=== PATIENT | male | born 1970 | race Caucasian/White ===

== ENCOUNTER 2017-04-30 12:00 | Emergency (ER) | payer OTHER ==
[~2017-04-30 12:00] MED LIST: ALB18R IH; ALPR-429 PO; ATEN-1 PO; AZIT-1 PO; BENZ200C15 PO; BUS5 PO; CIP500 PO; CYCL10TA29 PO; DOC100 PO; DULO60CA56 PO; ESCI10TA8 PO; ESOM40CA42 PO; HYDR-2966 PO; HYDR12.561 PO; IPRA3AMP21 IH; LISI-355 PO; LISI-362 PO; LISI20TA29 PO; LOR5 PO; MOMR ENA; NEBI10TA4 PO; NICO-218 TD; PER PO; PHENA200 PO; TAM4 PO; TOLT2TAB5 PO; TRIA15CR40 TOP; VARE1TAB3 PO; [UNRECOGNIZED DRUG - REMARK]
--- NOTE | 2017-04-30 12:16 | ER Report ---
History and Physical Time Seen By MD: 12:15 Hx. of Stated Complaint: Syncope on Sunday diarrhea this weekend HPI/ROS 46-year-old male ambulatory to the emergency room states he was nauseated on Sunday was sitting on the toilet woke up with a hematoma on his forehead had passed out and fallen into the shower and had head and neck pain talk to his at the time told him that he had the flu and go to bed and went to bed and woke up with several episodes of diarrhea has diarrhea over the weekend and remained nauseated periumbilical abdominal pain Remainder of the 14 system rev: Yes Allergies: Uncoded Allergies: RAGWEED MOLD (Allergy, Mild, STUFFY NOSE, 12/23/06) Home Meds Active Scripts Ondansetron (ZOFRAN ODT) 4 Mg Tab.rapdis, 4 MG PO Q6H Y for NAUSEA/VOMITING, # 20 TAB.RUDY Prov:SEAN CHARLTON APRN-C 04/30/17 Escitalopram Oxalate (ESCITALOPRAM OXALATE) 10 Mg Tablet, 0.5 TAB PO QDAY, #15 TAB 2 Refills Prov:SELENA LANDIS APRN-C 04/09/17 Lisinopril/Hydrochlorothiazide (LISINOPRIL-HCTZ 20-25 MG TAB) 1 Each Tablet, 1 TAB PO DAILY, #90 TAB 3 Refills Prov:SELENA LANDIS APRN-C 12/01/16 Albuterol Sulfate (VENTOLIN HFA) 18 Gm Inh, 2 PUFF IH QID Y for SHORTNESS OF BREATH, #1 INHALER 0 Refills Prov:SELENA LANDIS APRN-C 10/26/16 Buspirone Hcl (BUSPIRONE HCL) 5 Mg Tab, 1 TAB PO TID, #90 TAB 5 Refills Prov:SELENA LANDIS APRN-C 10/06/16 Triamcinolone Acetonide 0.1% Cr 15 Gm Tube (TRIAMCINOLONE ACETONIDE 0.1% CREAM) 15 Gm Cream..g., 1 WILTON TOP TID Y for eczema, #60 GM 1 Refill Do not apply to genitals, face or folds Prov:SELENA LANDIS APRN-C 01/22/15 Discontinued Scripts Benzonatate (BENZONATATE) 200 Mg Capsule, 1 CAP PO TID Y for cough, #15 CAP 0 Refills Prov:SELENA LANDIS APRN ANIMAL PATHOLOGIST-C 10/26/16 Mometasone Furoate (NASONEX) 17 Gm [place], 2 SPRAY BLUE DAILY, #1 BOTTLE 0 Refills Prov:SELENA LADNIS APRN ANIMAL PATHOLOGIST-C 10/26/16 Nicotine (NICODERM CQ) 1 Each Patch.td24, 1 PATCH TD DAILY, #42 PATCH 0 Refills May remove at bedtime if desired Prov:SELENA LANDIS APRN ANIMAL PATHOLOGIST-C 09/19/16 Esomeprazole Magnesium (NEXIUM) 40 Mg Capsule., 1 CAP PO QDAY, #30 CAP 1 Refill Prov:EVANGELIST XIONG MD 06/01/16 Past Medical/Surgical History Hypertension, appendectomy, umbilical hernia Hx Smoking: No Smoking Status: Never Smoker Exposure to Second Hand Smoke?: No Hx Substance Use Disorder: No Hx Alcohol Use: No Family History of: HTN Constitutional Vital Sign - Last 24 Hours 04/30/17 04/30/17 04/30/17 04/30/17 12:08 12:08 12:15 12:15 Pulse 76 76 B/P (MAP) 143/96 (112) 143/96 (112) Pulse Ox 94 94 04/30/17 04/30/17 04/30/17 04/30/17 12:30 12:30 12:34 12:45 Temp 97.7 Pulse 65 65 76 ??? Resp 16 B/P (MAP) 123/86 (98) 123/86 (98) 143/96 Pulse Ox 95 95 96 04/30/17 04/30/17 04/30/17 04/30/17 12:59 12:59 13:00 13:00 Pulse 66 66 B/P (MAP) 129/92 (104) 129/92 (104) 126/89 (101) 126/89 (101) Pulse Ox 96 96 04/30/17 04/30/17 04/30/17 04/30/17 13:02 13:02 13:06 13:15 Pulse 69 ??? 68 78 B/P (MAP) 118/82 (94) 118/82 (94) 129/92 (104) 126/89 (101) 118/82 (94) Pulse Ox 84 04/30/17 04/30/17 04/30/17 04/30/17 13:24 13:30 13:30 13:36 Temp 97.7 Pulse 67 67 B/P (MAP) 125/80 (95) 125/80 (95) Pulse Ox 91 91 O2 Flow Rate 1.0 04/30/17 04/30/17 04/30/17 04/30/17 13:45 13:45 13:50 14:00 Pulse 78 78 66 B/P (MAP) 126/89 (101) Pulse Ox 94 94 96 04/30/17 04/30/17 04/30/17 04/30/17 14:05 14:20 14:30 14:35 Pulse 62 61 52 B/P (MAP) 139/90 (106) Pulse Ox 97 97 96 04/30/17 04/30/17 04/30/17 14:50 14:59 15:05 Pulse 64 ??? B/P (MAP) 116/75 (89) Pulse Ox 96 Intake and Output 04/30/17 04/30/17 05/01/17 15:00 23:00 07:00 Intake Total 650 ml Balance 650 ml Physical Exam He 6-year-old male alert and oriented no acute distress HEENT head has a bruise on his forehead tympanic membranes no hemotympanum throat is non-reddened neck is supple mild tenderness midline at about C6 heart rate is regular no murmurs rubs and gallops lungs decreased bilateral bases abdomen is obese bowel sounds 4 quadrants no abdominal pain currently is all extremities no peripheral edema Medical Decision Making Data Points Result Diagram: 04/30/17 1232 04/30/17 1232 Laboratory Hematology Test 04/30/17 12:32 04/30/17 14:18 Red Blood Count 5.41 M/uL (4.00-5.60) Mean Corpuscular Volume 92.1 fL (80.0-96.0) Mean Corpuscular Hemoglobin 31.5 pg (26.0-33.0) Mean Corpuscular Hemoglobin Concent 34.2 g/dL (32.0-36.0) Red Cell Distribution Width 13.0 % (11.5-14.5) Mean Platelet Volume 7.6 fL (7.2-11.1) Neutrophils (%) (Auto) 60.5 % (39.4-72.5) Lymphocytes (%) (Auto) 22.6 % (17.6-49.6) Monocytes (%) (Auto) 14.5 % (4.1-12.4) Eosinophils (%) (Auto) 1.9 % (0.4-6.7) Basophils (%) (Auto) 0.5 % (0.3-1.4) Nucleated RBC Relative Count (auto) 0.2 /100WBC Neutrophils # (Auto) 4.8 K/uL (2.0-7.4) Lymphocytes # (Auto) 1.8 K/uL (1.3-3.6) Monocytes # (Auto) 1.1 K/uL (0.3-1.0) Eosinophils # (Auto) 0.2 K/uL (0.0-0.5) Basophils # (Auto) 0.0 K/uL (0.0-0.1) Nucleated RBC Absolute Count (auto) 0.02 K/uL D-Dimer Quantitative (PE/DVT) 0.38 ug/ml (0-0.50) Sodium Level 138 mmol/L (137-145) Potassium Level 3.7 mmol/L (3.5-5.0) Chloride Level 100 mmol/L (98-107) Carbon Dioxide Level 24 mmol/L (22-30) Blood Urea Nitrogen 15 mg/dl (9-21) Creatinine 0.90 mg/dl (0.66-1.25) Glomerular Filtration Rate Calc > 60.0 Random Glucose 87 mg/dl (75-110) Calcium Level 9.1 mg/dl (8.4-10.2) Magnesium Level 2.0 mg/dl (1.7-2.2) Total Bilirubin 0.4 mg/dl (0.2-1.3) Aspartate Amino Transf (AST/SGOT) 24 U/L (0-35) Alanine Aminotransferase (ALT/SGPT) 41 U/L (0-56) Alkaline Phosphatase 56 U/L (0-126) Total Protein 7.2 gm/dl (6.3-8.2) Albumin 4.0 g/dl (3.5-5.0) Amylase Level 61 U/L (0-110) Lipase 148 U/L (23-300) Troponin I < 0.012 ng/ml Chemistry Test 04/30/17 12:32 04/30/17 14:18 White Blood Count 7.9 k/uL (4.5-11.0) Red Blood Count 5.41 M/uL (4.00-5.60) Hemoglobin 17.0 g/dL (14.0-18.0) Hematocrit 49.8 % (42.0-52.0) Mean Corpuscular Volume 92.1 fL (80.0-96.0) Mean Corpuscular Hemoglobin 31.5 pg (26.0-33.0) Mean Corpuscular Hemoglobin Concent 34.2 g/dL (32.0-36.0) Red Cell Distribution Width 13.0 % (11.5-14.5) Platelet Count 306 K/uL (150-450) Mean Platelet Volume 7.6 fL (7.2-11.1) Neutrophils (%) (Auto) 60.5 % (39.4-72.5) Lymphocytes (%) (Auto) 22.6 % (17.6-49.6) Monocytes (%) (Auto) 14.5 % (4.1-12.4) Eosinophils (%) (Auto) 1.9 % (0.4-6.7) Basophils (%) (Auto) 0.5 % (0.3-1.4) Nucleated RBC Relative Count (auto) 0.2 /100WBC Neutrophils # (Auto) 4.8 K/uL (2.0-7.4) Lymphocytes # (Auto) 1.8 K/uL (1.3-3.6) Monocytes # (Auto) 1.1 K/uL (0.3-1.0) Eosinophils # (Auto) 0.2 K/uL (0.0-0.5) Basophils # (Auto) 0.0 K/uL (0.0-0.1) Nucleated RBC Absolute Count (auto) 0.02 K/uL D-Dimer Quantitative (PE/DVT) 0.38 ug/ml (0-0.50) Glomerular Filtration Rate Calc > 60.0 Calcium Level 9.1 mg/dl (8.4-10.2) Magnesium Level 2.0 mg/dl (1.7-2.2) Total Bilirubin 0.4 mg/dl (0.2-1.3) Aspartate Amino Transf (AST/SGOT) 24 U/L (0-35) Alanine Aminotransferase (ALT/SGPT) 41 U/L (0-56) Alkaline Phosphatase 56 U/L (0-126) Total Protein 7.2 gm/dl (6.3-8.2) Albumin 4.0 g/dl (3.5-5.0) Amylase Level 61 U/L (0-110) Lipase 148 U/L (23-300) Troponin I < 0.012 ng/ml Coagulation Test 04/30/17 12:32 D-Dimer Quantitative (PE/DVT) 0.38 ug/ml EKG/Imaging EKG Interpretation EKG at 1240 to normal sinus rhythm ventricular rate 65 QTCs 447 2nd EKG at 1357 sinus bradycardia ventricular rate 57 QTC 418 Imaging ACILITY: [facility] [place] PATIENT NAME: Jimmy Cutler : 1970 MR: [id number] V: [id number] EXAM DATE: [id number] ORDERING PHYSICIAN: SEAN CHARLTON TECHNOLOGIST: Location: [facility] [place] Patient: Jimmy Cutler : 1970 Visit/Account:[id number] Date of Sevice: 04/30/2017 Exam type: CHEST SINGLE AP History: syncope Comparison: October 26, 2016. Findings: The lungs are free of acute effusions, infiltrates or edema. No evidence of a pneumothorax or pneumomediastinum. Cardiac silhouette is normal in size. The trachea is midline. IMPRESSION: 1. No acute cardiac pulmonary process is seen Report Dictated By: Shelley Garcia MD at 04/30/2017 12:56 PM Report E-Signed By: Shelley Garcia MD at 04/30/2017 12:58 PM WSN:[id number]: [facility] [place] PATIENT NAME: Jimmy Cutler : 1970 MR: [id number] V: [id number] EXAM DATE: [id number] ORDERING PHYSICIAN: SEAN CHARLTON TECHNOLOGIST: Location: [facility] [place] Patient: Jimmy Cutler : 1970 Visit/Account:[id number] Date of Sevice: 04/30/2017 EXAMINATION: CT HEAD AND CERVICAL SPINE WITHOUT CONTRAST COMPARISON: None available HISTORY: syncope PROCEDURE: Noncontrast CT from the vertex through the skull base and multiplanar noncontrast cervical spine. One of the following dose optimization techniques was utilized in the performance of this exam: Automated exposure control; adjustment of the mA and/or kV according to the patient's size; or use of an iterative reconstruction technique. Specific details can be referenced in the facility's radiology CT exam operational policy. FINDINGS: CT head without contrast: Brain volume: Age-appropriate. Hemorrhage/extra-axial fluid: None. Mass effect/midline shift/edema: None. Ischemia: Sparrow-white differentiation is preserved. Ventricles and basal cisterns: Within normal limits. Posterior fossa: Negative. Vessels: Negative. Calvarium, skull base, and scalp: Negative. Visualized sinuses and orbits: Left maxillary sinus mucous retention cyst. Paranasal sinuses and mastoid air cells are otherwise clear. Orbital contents are unremarkable. CT cervical spine without contrast: Alignment: Within normal limits. Cranio-cervical junction: Within normal limits. Vertebral bodies: Within normal limits. Posterior elements: Within normal limits. Disc spaces: Within normal limits. Hardware: None. Soft tissues: Absent left hemithyroid. No acute changes. Visualized upper chest: Negative. IMPRESSION: 1. No intracranial hemorrhage or mass effect. 2. No CT findings of acute ischemia. 3. No cervical spine fracture or malalignment. Report Dictated By: Bogdan Amador MD at 04/30/2017 1:17 PM ED Course/Re-evaluation Clinical Indication for ER IV: Hydration ED Course Given a liter normal saline in the emergency room feels better after treatment orthostatic vital signs were negative today's workup was negative negative CT head negative CT C-spine negative chest x-ray left upper present within normal limits as well have him follow-up with his primary care provider for the rest of syncope workup he does need to have a stress test done and carotid ultrasound Re-evaluation Feels better after treatment his boss to tell him to go home and rest today will call his provider tomorrow for follow-up states is a family wedding on Sunday in will workaround that return for any problems or concerns Decision to Disposition Date: Apr 30, 2017 Decision to Disposition Time: 15:00 Depart Departure Latest Vital Signs Vital Signs Date Time Temp Pulse Resp B/P (MAP) Pulse Ox O2 Delivery O2 Flow Rate FiO2 04/30/17 15:05 ??? 04/30/17 14:59 116/75 (89) 04/30/17 14:50 96 04/30/17 13:36 1.0 04/30/17 13:24 97.7 04/30/17 12:34 16 Impression: Primary Impression: Syncope Additional Impression: Head injury Condition: Improved Disposition: HOME OR SELF-CARE Referrals: SELENA LANDIS APRNP-C (PCP) 1 Day New Scripts Ondansetron (ZOFRAN ODT) 4 Mg Tab.rapdis 4 MG PO Q6H Y for NAUSEA/VOMITING, #20 TAB.RUDY Prov: SEAN CHARLTON 04/30/17 Patient Instructions: Head Injury (ED), Syncope (DC) Additional Instructions: See her primary care physician in the next day or 2 follow-up for your syncopal episode return for any problems or concerns Problem Qualifiers SEAN CHARLTON Apr 30, 2017 12:16
[2017-04-30] MEDS ORDERED: NS(*) 0.9% 1000 ML BAG 1,000 ML IV ONE (12:24)
[2017-04-30] MEDS ORDERED: ONDANSETRON 4 MG/2 ML VIAL IVP ONE (12:25)
[2017-04-30] MEDS ORDERED: PANTOPRAZOLE SOD 40 MG IV VIAL IVP ONE (12:25)
[2017-04-30 12:39] LABS: PLATELET COUNT, AUTOMATED 306 K/uL (150-450)
--- NOTE | 2017-04-30 13:01 | EKG ---
[place] [facility] [place]IENT NAME: DAYANA COLEMAN : [id number] MR: [id number] V: [id number] EXAM DATE: ORDERING PHYSICIAN: SEAN CHARLTON TECHNOLOGIST: VANESSA Wilson Reason : SYNCOPE Blood Pressure : / mmHG Vent. Rate : 065 BPM Atrial Rate : 065 BPM P-R Int : 148 ms QRS Dur : 092 ms QT Int : 430 ms P-R-T Axes : 025 014 025 degrees QTc Int : 447 ms Normal sinus rhythm Normal ECG When compared with ECG of 11-JAN-2016 15:31, No significant change was found Confirmed by TEMITOPE HAYES ([id number]) on 04/30/2017 3:59:24 PM Referred By: LATESHA Confirmed By:TEMITOPE HAYES
--- NOTE | 2017-04-30 13:04 | RADIOLOGY IMAGING REPORT ---
FACILITY: [facility] PATIENT NAME: Jimmy Cutler : 1970 MR: [id number] V: [id number] EXAM DATE: ORDERING PHYSICIAN: SEAN CHARLTON TECHNOLOGIST: Location: [facility] [place] Patient: Jimmy Cutler : 1970 Visit/Account:[id number] Date of Sevice: 04/30/2017 Exam type: CHEST SINGLE AP History: syncope Comparison: October 26, 2016. Findings: The lungs are free of acute effusions, infiltrates or edema. No evidence of a pneumothorax or pneumo mediastinum. Cardiac silhouette is normal in size. The trachea is midline. IMPRESSION: 1. No acute cardiac pulmonary process is seen Report Dictated By: Shelley Garcia MD at 04/30/2017 12:56 PM Report E-Signed By: Shelley Garcia MD at 04/30/2017 12:58 PM WSN:[email or web address]
--- NOTE | 2017-04-30 13:29 | RADIOLOGY IMAGING REPORT ---
FACILITY: [facility] PATIENT NAME: Jimmy Cutler : 1970 MR: [id number] V: [id number] EXAM DATE: ORDERING PHYSICIAN: SEAN CHARLTON TECHNOLOGIST: Location: [facility] [place] Patient: Jimmy Cutler : 1970 Visit/Account:[id number] Date of Sevice: 04/30/2017 EXAMINATION: CT HEAD AND CERVICAL SPINE WITHOUT CONTRAST COMPARISON: None available HISTORY: syncope PROCEDURE: Noncontrast CT from the vertex through the skull base and multiplanar noncontrast cervical spine. One of the following dose optimization techniques was utilized in the performance of this exa m: Automated exposure control; adjustment of the mA and/or kV according to the patient's size; or use of an iterative reconstruction technique. Specific details can be referenced in the [facility]. FINDINGS: CT head without contrast: Brain volume: Age-appropriate. Hemorrhage/extra-axial fluid: None. Mass effect/midline shift/edema: None. Ischemia: Sparrow-white differentiation is preserved. Ventricles and basal cisterns: Within normal limits. Posterior fossa: Negative. Vessels: Negative. Calvarium, skull base, and scalp: Negative. Visualized sinuses and orbits: Left maxillary sinus mucous retention cyst. Paranasal sinuses and mast oid air cells are otherwise clear. Orbital contents are unremarkable. CT cervical spine without contrast: Alignment: Within normal limits. Cranio-cervical junction: Within normal limits. Vertebral bodies: Within normal limits. Posterior elements: Within normal limits. Disc spaces: Within normal limits. Hardware: None. Soft tissues: Absent left hemithyroid. No acute changes. Visualized upper chest: Negative. IMPRESSION: 1. No intracranial hemorrhage or mass effect. 2. No CT findings of acute ischemia. 3. No cervical spine fracture or malalignment. Report Dictated By: Bogdan Amador MD at 04/30/2017 1:17 PM Report E-Signed By: Bogdan Amador MD at 04/30/2017 1:25 PM WSN:[id number]
--- NOTE | 2017-04-30 13:30 | RADIOLOGY IMAGING REPORT ---
FACILITY: [facility] [place] PATIENT NAME: Jimmy Cutler : 1970 MR: [id number] V: [id number] EXAM DATE: ORDERING PHYSICIAN: SEAN CHARLTON TECHNOLOGIST: Location: [facility] [place] Patient: Jimmy Cutler : 1970 Visit/Account:[id number] Date of Sevice: 04/30/2017 EXAMINATION: CT HEAD AND CERVICAL SPINE WITHOUT CONTRAST COMPARISON: None available HISTORY: syncope PROCEDURE: Noncontrast CT from the vertex through the skull base and multiplanar noncontrast cervical spine. One of the following dose optimization techniques was utilized in the performance of this exa m: Automated exposure control; adjustment of the mA and/or kV according to the patient's size; or use of an iterative reconstruction technique. Specific details can be referenced in the [facility]. FINDINGS: CT head without contrast: Brain volume: Age-appropriate. Hemorrhage/extra-axial fluid: None. Mass effect/midline shift/edema: None. Ischemia: Sparrow-white differentiation is preserved. Ventricles and basal cisterns: Within normal limits. Posterior fossa: Negative. Vessels: Negative. Calvarium, skull base, and scalp: Negative. Visualized sinuses and orbits: Left maxillary sinus mucous retention cyst. Paranasal sinuses and mast oid air cells are otherwise clear. Orbital contents are unremarkable. CT cervical spine without contrast: Alignment: Within normal limits. Cranio-cervical junction: Within normal limits. Vertebral bodies: Within normal limits. Posterior elements: Within normal limits. Disc spaces: Within normal limits. Hardware: None. Soft tissues: Absent left hemithyroid. No acute changes. Visualized upper chest: Negative. IMPRESSION: 1. No intracranial hemorrhage or mass effect. 2. No CT findings of acute ischemia. 3. No cervical spine fracture or malalignment. Report Dictated By: Bogdan Amador MD at 04/30/2017 1:17 PM Report E-Signed By: Bogdan Amador MD at 04/30/2017 1:25 PM WSN:[id number]
--- NOTE | 2017-04-30 14:04 | EKG ---
FACILITY: [facility] PATIENT NAME: DAYANA COLEMAN : [id number] MR: [id number] V: [id number] EXAM DATE: ORDERING PHYSICIAN: SEAN CHARLTON TECHNOLOGIST: MEGHAN Wilson Reason : LIGHT HEADED Blood Pressure : / mmHG Vent. Rate : 057 BPM Atrial Rate : 057 BPM P-R Int : 152 ms QRS Dur : 092 ms QT Int : 430 ms P-R-T Axes : 017 016 014 degrees QTc Int : 418 ms Sinus bradycardia Otherwise normal ECG When compared with ECG of 30-APR-2017 12:42, No significant change was found Confirmed by TEMITOPE HAYES ([id number]) on 04/30/2017 3:59:43 PM Referred By: LATESHA Confirmed By:TEMITOPE HAYES
[2017-04-30] MEDS ORDERED: ONDA4TAB PO (14:49)
[2017-04-30 14:59] VITALS: BP 116/75
== END 2017-04-30 15:10 | disposition home or self-care (01) ==
LOC: ER 12:09
DX: R55 Syncope and collapse (principal); R00.1 Bradycardia, unspecified
CPT/HCPCS: 36415; 70450; 71045; 72125; 82150; 83690; 83735; 84484; 85025; 85379; 93005; 96361; 96374; 96375; 99284; C9113; J2405; J7030; 82040; 82247; 82310; 82374; 82435; 82565; 82947; 84075; 84132; 84155; 84295; 84450; 84460; 84520

== ENCOUNTER → 2017-05-04 | Outpatient (CLI) | payer OTHER ==
[~2017-05-04] MED LIST changes: +ONDA4TAB PO
--- NOTE | 2017-05-04 15:45 | RADIOLOGY IMAGING REPORT ---
FACILITY: [facility] PATIENT NAME: Jimmy Cutler : 1970 MR: [id number] V: [id number] EXAM DATE: ORDERING PHYSICIAN: SELENA LANDIS TECHNOLOGIST: Location: [facility] [place] Patient: Jimmy Cutler : 1970 Visit/Account:[id number] Date of Sevice: 05/04/2017 CAROTID HISTORY: syncope COMPARISON: None. FINDINGS: Grayscale, duplex and color Doppler interrogation of the extracranial carotid and vertebral arteries was performed bilateral. On the right, peak systolic velocities within the common and internal carotid arteries are 94 and 96 cm/sec respectively. No significant plaque identified. Antegrade flow within the common, internal a nd external carotid arteries as well as vertebral artery. ICA/CCA ratio 1.1. On the left, peak systolic velocities within the common and internal carotid arteries are 121 and 75 cm/sec respectively. No significant plaque identified. Antegrade flow within the common, internal a nd external carotid arteries as well as vertebral artery. ICA/CCA ratio 1. IMPRESSION: No hemodynamically significant lesions identified Velocity criteria are extrapolated from diameter data as defined by the Society of Radiologists in Ul trasound Consensus Conference Radiology 2003; 229;340-346 Report Dictated By: Shelley Garcia MD at 05/04/2017 3:39 PM Report E-Signed By: Shelley Garcia MD at 05/04/2017 3:40 PM WSN:[email or web address]
== END ==
LOC: US 03:50
PROVIDERS: ATTEND Nurse Practitioner Family
DX: R55 Syncope and collapse (principal)
CPT/HCPCS: 93880

== ENCOUNTER → 2017-05-08 | Outpatient (CLI) | payer OTHER | LOC: RESP 01:52 | PROVIDERS: ATTEND Nurse Practitioner Family | DX: R55 Syncope and collapse (principal) | CPT/HCPCS: 93017 ==

== ENCOUNTER → 2017-07-12 | Outpatient (REF) ==
[2017-07-12 16:16] LABS: LDL CHOLESTEROL 113 mg/dl
== END ==
DX: Z02.9 Encounter for administrative examinations, unspecified (principal)

== ENCOUNTER → 2017-07-25 | Outpatient (CLI) | payer SELFPAY | LOC: AUD 14:48 | PROVIDERS: ATTEND Nurse Practitioner | DX: Z46.1 Encounter for fitting and adjustment of hearing aid (principal) | CPT/HCPCS: 92591 ==

== ENCOUNTER → 2017-08-27 | Outpatient (CLI) | payer OTHER ==
[~2017-08-27] MED LIST changes: +OXYGENHOME INH
[2017-08-27 15:49] LABS: PLATELET COUNT, AUTOMATED 285 K/uL (150-450)
== END ==
LOC: LAB 15:28
PROVIDERS: ATTEND Nurse Practitioner Family
DX: D72.829 Elevated white blood cell count, unspecified (principal)
CPT/HCPCS: 36415; 85007; 85027

== ENCOUNTER → 2017-08-31 | Outpatient (CLI) | payer OTHER | LOC: RESP 04:18 | PROVIDERS: ATTEND Nurse Practitioner Family | DX: Z02.9 Encounter for administrative examinations, unspecified (principal) | CPT/HCPCS: 94060; 94726; 94729 ==

== ENCOUNTER → 2017-09-06 | Outpatient (CLI) | payer OTHER | LOC: RESP 03:39 | PROVIDERS: ATTEND Nurse Practitioner Family | DX: R06.00 Dyspnea, unspecified (principal) | CPT/HCPCS: 94060 ==

== ENCOUNTER → 2017-09-22 | Outpatient (CLI) | payer OTHER ==
[~2017-09-22] MED LIST changes: +IPRA3AMP10 IH; -IPRA3AMP21 IH
== END ==
LOC: RESP 20:24
PROVIDERS: ATTEND Nurse Practitioner Family
DX: G47.33 Obstructive sleep apnea (adult) (pediatric) (principal); G47.61 Periodic limb movement disorder; G47.36 Sleep related hypoventilation in conditions classified elsewhere

== ENCOUNTER 2018-07-04 10:49 | Emergency (ER) | payer OTHER ==
[~2018-07-04 10:49] MED LIST changes: +GUAI120L3 PO; +PRED20TA6 PO; +Work Note
[2018-07-04 10:54] VITALS: BP 139/93
--- NOTE | 2018-07-04 11:00 | ER Report ---
History and Physical Time Seen By MD: 11:00 Hx. of Stated Complaint: PT BIT BY SPIDER ON SUNDAY. HAVING NAUSEA, HEADACHE. RIGHT EYELID RED AND SWOLLEN HPI/ROS CHIEF COMPLAINT: Swelling and redness of right eyelid HISTORY OF PRESENT ILLNESS: 48-year-old male patient presents to emergency room with complaint of swelling and redness to the right eyelid. Patient states that this is been going on for the last few days. He states that on Sunday he was at his daughter's house. He states his playing outside with his grandkids. He states that after that he started having some irritation to the right eyelid. He believes that he was bitten by some sort of insect, possibly a spider. He states that he didn't think anything of it for couple days after that and then yesterday started not feeling well, headache, malaise, nausea. Patient states the pain has persisted. He denies any fevers, chills, vomiting or diarrhea. Patient states he has been nauseated. Patient has taken ibuprofen which does seem to help with the irritation. He states his applied baking soda and wa rm water, which burned when it was applied, but he states that it helped pulled "poison" out of the eyelid. Allergies: Uncoded Allergies: RAGWEED MOLD (Allergy, Mild, STUFFY NOSE, 12/23/06) Home Meds Active Scripts Sulfamethoxazole/Trimet 800-160 Mg Tab (BACTRIM DS TABLET) 1 Each Tablet, 1 TAB PO Q12H, #14 TAB Prov:DINORAH LEONGP 07/04/18 Cephalexin 500 Mg Tab (KEFLEX 500 MG TAB) 500 Mg Tablet, 500 MG PO Q6H, #28 TAB Prov:DINORAH LEONG 07/04/18 Escitalopram Oxalate (ESCITALOPRAM OXALATE) 10 Mg Tablet, 0.5 TAB PO QDAY, #45 TAB 0 Refills Prov:SELENA LANDIS APRN [employer]NAGER [employer] 04/16/18 [Work Note] No Conflict Check Patient seen in the office today. Please excuse from work today and tomorrow. May return Sunday as tolerated. Prov:JOSELITO NGUYEN DNP, [employer] 02/18/18 Guaifenesin/Codeine Phosphate (Codeine-Guaifen 10-100 mg/5 ml) 120 Ml Liquid, 1- 2 TSP PO Q6H PRN for COUGH, #120 ML 0 Refills Prov:JOSELITO NGUYEN Evi [facility] 02/18/18 Prednisone (PREDNISONE) 20 Mg Tablet, 1 TAB PO BID for 5 Days, #10 TAB 0 Refills Prov:JOSELITO NGUYEN Evi [facility] 02/18/18 [Work Note] No Conflict Check Patient seen in the office today. Please excuse from work 02/12/18-02/14/18. Prov:WENDYJOSELITO DNP [facility] 02/12/18 Buspirone Hcl (BUSPIRONE HCL) 5 Mg Tab, 1 TAB PO TID, #90 TAB 5 Refills Prov:SELENA LANDIS APRN [facility] 10/19/17 Lisinopril/Hydrochlorothiazide (LISINOPRIL-HCTZ 20-25 MG TAB) 1 Each Tablet, 1 TAB PO DAILY, #90 TAB 2 Refills Prov:SELENA LANDIS APRN [facility]- 08/31/17 Oxygen (OXYGEN) Inha, 2 L INH QHS, #2 L Prov:SELENA LANDIS APRN [facility]- 08/29/17 Discontinued Scripts Azithromycin (ZITHROMAX) 250 Mg Tablet, 0 PO QDAY, #6 TAB 0 Refills TAKE 2 TABLETS ON DAY 1 AND 1 TABLET ON DAYS 2-5 Prov:VALDO NGUYENEvi [facility] 02/18/18 Past Medical/Surgical History Patient has a past medical history of hypertension, bronchitis, pneumonia, kidney stone, right leg fracture, right thumb fracture, right elbow fracture, anxiety. Patient has a surgical history of appendectomy, lithotripsy. Patient has a family medical history of cancer. Reviewed Nurses Notes: Yes Hx Smoking: No Smoking Status: Never Smoker Exposure to Second Hand Smoke?: No Hx Substance Use Disorder: No Hx Alcohol Use: No Constitutional Vital Sign - Last 24 Hours 07/04/18 10:54 Temp 97.7 Pulse 79 Resp 16 B/P (MAP) 139/93 Pulse Ox 91 O2 Delivery Room Air Physical Exam General Appearance: The patient is alert, has no immediate need for airway protection and no current signs of toxicity. Respiratory: Chest is non tender, lungs are clear to auscultation. Cardiac: regular rate and rhythm Gastrointestinal: Abdomen is soft and non tender, no masses, bowel sounds normal. Musculoskeletal: Neck: Neck is supple and non tender. Extremities have full range of motion and are non tender. Skin: No rashes or lesions. Patient has 3 scattered spots on the right eyelid, is erythematous, slightly swollen. DIFFERENTIAL DIAGNOSIS: After history and physical exam differential diagnosis was considered for cellulitis, insect bite. Medical Decision Making ED Course/Re-evaluation ED Course Patient was admitted to an exam room, history and physical were obtained. Differential diagnoses were considered. On examination lungs are clear, heart is regular, abdomen is soft and nontender. Patient does have 3 scabbed areas on the right eyelid as well as swelling and erythema. Patient had no tenderness to palpation. We will go ahead and start him on antibiotics. I did call and speak with Lg Trinh, nurse practitioner, who agreed to see the patient on Sunday were able to arrange for an appointment at [facility] on Sunday for reevaluation. Patient is return to emergency room if condition worsens. I discussed this with the patient who verbalized understanding and agreement with plan. Patient did request and was given a note to excuse him from work today and tomorrow. Decision to Disposition Date: July 04, 2018 Decision to Disposition Time: 11:26 Depart Departure Latest Vital Signs Vital Signs Date Time Temp Pulse Resp B/P (MAP) Pulse Ox O2 Delivery O2 Flow Rate FiO2 07/04/18 10:54 97.7 79 16 139/93 91 Room Air Impression: Primary Impression: INSECT BITE OF UNSP EYELID AND PERIOCULAR AREA, INIT Additional Impression: CELLULITIS OF RIGHT ORBIT Condition: Improved Disposition: HOME OR SELF-CARE Referrals: SELENA LANDIS APRNP-C (PCP) New Scripts Sulfamethoxazole/Trimet 800-160 Mg Tab (BACTRIM DS TABLET) 1 Each Tablet 1 TAB PO Q12H, #14 TAB Prov: DINORAH LEONG 07/04/18 Cephalexin 500 Mg Tab (KEFLEX 500 MG TAB) 500 Mg Tablet 500 MG PO Q6H, #28 TAB Prov: DINORAH LEONG 07/04/18 Patient Instructions: Cellulitis (ED) Additional Instructions: Take medications as needed. Follow up with Selena on Sunday, at 1:45pm. Take Tylenol or Ibuprofen as needed for pain. Return to the ER if condition worsens. Limit activity by pain. Problem Qualifiers DINORAH LEONG July 04, 2018 11:00
[2018-07-04] MEDS ORDERED: SULF-198 PO (11:17)
[2018-07-04] MEDS ORDERED: CEPH500T7 PO (11:17)
[2018-07-09] MEDS ORDERED: LIDO700A19 TOP (09:25)
[2018-07-09] MEDS ORDERED: GABA-549 PO (09:25)
[2018-07-10] MEDS ORDERED: ESCI10TA8 PO (10:06)
== END 2018-07-04 11:32 | disposition home or self-care (01) ==
LOC: ER 11:00
DX: S00.261A Insect bite (nonvenomous) of right eyelid and periocular area, initial encounter (principal); H00.033 Abscess of eyelid right eye, unspecified eyelid
CPT/HCPCS: 99282

== ENCOUNTER 2018-07-08 17:02 | Emergency (ER) | payer OTHER ==
[~2018-07-08 17:02] MED LIST changes: +CEPH500T7 PO; +SULF-198 PO
[2018-07-08] MEDS ORDERED: ONDANSETRON 4 MG/2 ML VIAL IVP ONE (17:25)
[2018-07-08] MEDS ORDERED: NS(*) 0.9% 1000 ML BAG 1,000 ML IV ONE (17:25)
--- NOTE | 2018-07-08 17:25 | ER Report ---
History and Physical Time Seen By MD: 17:19 Hx. of Stated Complaint: reports that he was diagnosed with shingles today above right eye and up forehead. pt reports onset of sob and shaking. HPI/ROS CHIEF COMPLAINT: Lightheaded and sweaty HISTORY OF PRESENT ILLNESS: This is a 48-year-old male presents emergency department for lightheadedness and sweaty. 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 He states he felt like he was going to pass out, a coworker assisted him to the emergency department. He did ambulate to the emergency department he is currently being treated for shingles. He also has a follow-up appointment tomorrow with the brilliandeer looper. Denies pain in the eye, no headaches, he states he's having pain around the shingles sites otherwise no other complaints. No recent fevers or chills. He did have a little bit of nausea, no vomiting. Denied chest pain or shortness of breath. He does have an underlying essential tremor. REVIEW OF SYSTEMS: Constitutional: No fever, no chills. Eyes: No discharge. ENT: No sore throat. Cardiovascular: No chest pain, no palpitations. Respiratory: No cough, no shortness of breath. Gastrointestinal: As above. Genitourinary: No hematuria. Musculoskeletal: No back pain. Skin: No rashes. Neurological: As above. Allergies: Uncoded Allergies: RAGWEED MOLD (Allergy, Mild, STUFFY NOSE, 12/23/06) Home Meds Active Scripts Cephalexin 500 Mg Tab (KEFLEX 500 MG TAB) 500 Mg Tablet, 500 MG PO Q6H, #28 TAB Prov:DINORAH LEONG 07/04/18 Escitalopram Oxalate (ESCITALOPRAM OXALATE) 10 Mg Tablet, 0.5 TAB PO QDAY, #45 TAB 0 Refills Prov:SELENA LANDIS APRN-C 04/16/18 Buspirone Hcl (BUSPIRONE HCL) 5 Mg Tab, 1 TAB PO TID, #90 TAB 5 Refills Prov:SELENA LANDIS APRNP-C 10/19/17 Lisinopril/Hydrochlorothiazide (LISINOPRIL-HCTZ 20-25 MG TAB) 1 Each Tablet, 1 TAB PO DAILY, #90 TAB 2 Refills Prov:SELENA LANDIS APRN [facility] 08/31/17 Oxygen (OXYGEN) Inha, 2 L INH QHS, #2 L Prov:SELENA LANDIS APRN [facility]- 08/29/17 Discontinued Scripts Sulfamethoxazole/Trimet 800-160 Mg Tab (BACTRIM DS TABLET) 1 Each Tablet, 1 TAB PO Q12H, #14 TAB Prov:DINORAH LEONG [facility] 07/04/18 [Work Note] No Conflict Check Patient seen in the office today. Please excuse from work today and tomorrow. May return Sunday as tolerated. Prov:JOSELITO NGUYEN DNP, [facility] 02/18/18 Guaifenesin/Codeine Phosphate (Codeine-Guaifen 10-100 mg/5 ml) 120 Ml Liquid, 1- 2 TSP PO Q6H PRN for COUGH, #120 ML 0 Refills Prov:JOSELITO NGUYEN DNP [facility] 02/18/18 Prednisone (PREDNISONE) 20 Mg Tablet, 1 TAB PO BID for 5 Days, #10 TAB 0 Refills Prov:JOSELITO NGUYEN DNP, [facility] 02/18/18 [Work Note] No Conflict Check Patient seen in the office today. Please excuse from work 02/12/18-02/14/18. Prov:JOSELITO NGYUEN DNP, [facility] 02/12/18 Azithromycin (ZITHROMAX) 250 Mg Tablet, 0 PO QDAY, #6 TAB 0 Refills TAKE 2 TABLETS ON DAY 1 AND 1 TABLET ON DAYS 2-5 Prov:JOSELITO NGUYEN DNP, [facility] 02/18/18 Past Medical/Surgical History The patient has a past medical and surgical history of essential tremor, hypertension, bronchitis, pneumonia, kidney stones, cyst removed from lower back, right leg fracture, right thumb fracture, right elbow fracture, wears glasses, anxiety, appendectomy, lithotripsy. Reviewed Nurses Notes: Yes Hx Smoking: No Smoking Status: Never Smoker Exposure to Second Hand Smoke?: No Hx Substance Use Disorder: No Hx Alcohol Use: No Constitutional Vital Sign - Last 24 Hours 07/08/18 17:21 Temp 98.7 Pulse 91 Resp 20 B/P (MAP) 142/89 Pulse Ox 91 O2 Delivery Room Air Physical Exam General Appearance: The patient is alert, has no immediate need for airway protection and no signs of toxicity. Eyes: Pupils equal and round no pallor or injection. ENT, Mouth: Mucous membranes are moist. Respiratory: There are no retractions, lungs are clear to auscultation. Cardiovascular: Regular rate and rhythm. No murmurs, clicks or rubs. Gastrointestinal: Abdomen is soft and non tender, no masses, bowel sounds normal. Neurological: Alert and oriented 4. Moving all eyes. Following all commands. No focal neuro deficits. Does have an underlying essential tremor. Skin: Healing lesions to the right upper eyelid and forehead, secondary to shingles. Does not appear to be in the eye Musculoskeletal: Neck is supple non tender. Extremities are nontender, nonswollen and have full range of motion. DIFFERENTIAL DIAGNOSIS: After history and physical exam differential diagnosis was considered for syncope including but not limited to vasovagal syncope, ar rhythmia, dehydration, and blood loss. Medical Decision Making Data Points Result Diagram: 07/08/18 1731 07/08/18 1731 Laboratory Hematology Test 07/08/18 17:31 07/08/18 18:45 Red Blood Count 5.29 M/uL (4.00-5.60) Mean Corpuscular Volume 92.6 fL (80.0-96.0) Mean Corpuscular Hemoglobin 31.3 pg (26.0-33.0) Mean Corpuscular Hemoglobin Concent 33.7 g/dL (32.0-36.0) Red Cell Distribution Width 13.1 % (11.5-14.5) Mean Platelet Volume 6.7 fL (7.2-11.1) Neutrophils (%) (Auto) 58.1 % (39.4-72.5) Lymphocytes (%) (Auto) 26.3 % (17.6-49.6) Monocytes (%) (Auto) 12.2 % (4.1-12.4) Eosinophils (%) (Auto) 2.4 % (0.4-6.7) Basophils (%) (Auto) 1.0 % (0.3-1.4) Nucleated RBC Relative Count (auto) 0.1 /100WBC Neutrophils # (Auto) 5.4 K/uL (2.0-7.4) Lymphocytes # (Auto) 2.5 K/uL (1.3-3.6) Monocytes # (Auto) 1.1 K/uL (0.3-1.0) Eosinophils # (Auto) 0.2 K/uL (0.0-0.5) Basophils # (Auto) 0.1 K/uL (0.0-0.1) Nucleated RBC Absolute Count (auto) 0.00 K/uL Sodium Level 138 mmol/L (137-145) Potassium Level 3.7 mmol/L (3.5-5.0) Chloride Level 101 mmol/L (98-107) Carbon Dioxide Level 26 mmol/L (22-30) Blood Urea Nitrogen 21 mg/dl (9-21) Creatinine 1.20 mg/dl (0.66-1.25) Glomerular Filtration Rate Calc > 60.0 Random Glucose 80 mg/dl (75-110) Calcium Level 9.6 mg/dl (8.4-10.2) Total Bilirubin 0.3 mg/dl (0.2-1.3) Aspartate Amino Transf (AST/SGOT) 40 U/L (0-35) Alanine Aminotransferase (ALT/SGPT) 78 U/L (0-56) Alkaline Phosphatase 74 U/L (0-126) Troponin I < 0.012 ng/ml Total Protein 8.2 g/dl (6.3-8.2) Albumin 4.7 g/dl (3.5-5.0) Urine Color Yellow Urine Clarity Clear Urine pH 5.0 pH (4.8-9.5) Urine Specific [place] 1.024 Urine Protein Negative mg/dL (NEGATIVE) Urine Glucose (UA) Negative mg/dL (NEGATIVE) Urine Ketones Negative mg/dL (NEGATIVE) Urine Blood Negative (NEGATIVE) Urine Nitrite Negative (NEGATIVE) Urine Bilirubin Negative (NEGATIVE) Urine Urobilinogen Negative mg/dL (0.2-1.9) Urine Leukocyte Esterase Negative (NEGATIVE) Urine RBC 1 /HPF (0-2/HPF) Urine WBC 3 /HPF (0-5/HPF) Urine Squamous Epithelial Cells Few /LPF (</=FEW) Urine Bacteria Negative /HPF (NONE-FEW) Urine Mucus None /HPF (NONE-FEW) Chemistry Test 07/08/18 17:31 07/08/18 18:45 White Blood Count 9.4 k/uL (4.5-11.0) Red Blood Count 5.29 M/uL (4.00-5.60) Hemoglobin 16.5 g/dL (14.0-18.0) Hematocrit 49.0 % (42.0-52.0) Mean Corpuscular Volume 92.6 fL (80.0-96.0) Mean Corpuscular Hemoglobin 31.3 pg (26.0-33.0) Mean Corpuscular Hemoglobin Concent 33.7 g/dL (32.0-36.0) Red Cell Distribution Width 13.1 % (11.5-14.5) Platelet Count 297 K/uL (150-450) Mean Platelet Volume 6.7 fL (7.2-11.1) Neutrophils (%) (Auto) 58.1 % (39.4-72.5) Lymphocytes (%) (Auto) 26.3 % (17.6-49.6) Monocytes (%) (Auto) 12.2 % (4.1-12.4) Eosinophils (%) (Auto) 2.4 % (0.4-6.7) Basophils (%) (Auto) 1.0 % (0.3-1.4) Nucleated RBC Relative Count (auto) 0.1 /100WBC Neutrophils # (Auto) 5.4 K/uL (2.0-7.4) Lymphocytes # (Auto) 2.5 K/uL (1.3-3.6) Monocytes # (Auto) 1.1 K/uL (0.3-1.0) Eosinophils # (Auto) 0.2 K/uL (0.0-0.5) Basophils # (Auto) 0.1 K/uL (0.0-0.1) Nucleated RBC Absolute Count (auto) 0.00 K/uL Glomerular Filtration Rate Calc > 60.0 Calcium Level 9.6 mg/dl (8.4-10.2) Total Bilirubin 0.3 mg/dl (0.2-1.3) Aspartate Amino Transf (AST/SGOT) 40 U/L (0-35) Alanine Aminotransferase (ALT/SGPT) 78 U/L (0-56) Alkaline Phosphatase 74 U/L (0-126) Troponin I < 0.012 ng/ml Total Protein 8.2 g/dl (6.3-8.2) Albumin 4.7 g/dl (3.5-5.0) Urine Color Yellow Urine Clarity Clear Urine pH 5.0 pH (4.8-9.5) Urine Specific [place] 1.024 Urine Protein Negative mg/dL (NEGATIVE) Urine Glucose (UA) Negative mg/dL (NEGATIVE) Urine Ketones Negative mg/dL (NEGATIVE) Urine Blood Negative (NEGATIVE) Urine Nitrite Negative (NEGATIVE) Urine Bilirubin Negative (NEGATIVE) Urine Urobilinogen Negative mg/dL (0.2-1.9) Urine Leukocyte Esterase Negative (NEGATIVE) Urine RBC 1 /HPF (0-2/HPF) Urine WBC 3 /HPF (0-5/HPF) Urine Squamous Epithelial Cells Few /LPF (</=FEW) Urine Bacteria Negative /HPF (NONE-FEW) Urine Mucus None /HPF (NONE-FEW) Urinalysis Test 07/08/18 18:45 Urine Color Yellow Urine Clarity Clear Urine pH 5.0 pH (4.8-9.5) Urine Specific [place] 1.024 Urine Protein Negative mg/dL (NEGATIVE) Urine Glucose (UA) Negative mg/dL (NEGATIVE) Urine Ketones Negative mg/dL (NEGATIVE) Urine Blood Negative (NEGATIVE) Urine Nitrite Negative (NEGATIVE) Urine Bilirubin Negative (NEGATIVE) Urine Urobilinogen Negative mg/dL (0.2-1.9) Urine Leukocyte Esterase Negative (NEGATIVE) Urine RBC 1 /HPF (0-2/HPF) Urine WBC 3 /HPF (0-5/HPF) Urine Squamous Epithelial Cells Few /LPF (</=FEW) Urine Bacteria Negative /HPF (NONE-FEW) Urine Mucus None /HPF (NONE-FEW) EKG/Imaging EKG Interpretation 12 lead EKG: Time of EKG 1730. Rhythm: Normal sinus rhythm, ventricular rate 85 bpm. [place]: normal QRS: normal ST segments: No ST depression or elevation identified. Imaging PATIENT NAME: Jimmy Cutler : 1970 MR: [id number] V: [id number] EXAM DATE: ORDERING PHYSICIAN: OMA CRUZ TECHNOLOGIST: Location: [facility] Patient: Jimmy Cutler : 1970 Visit/Account:[id number] Date of Sevice: 07/08/2018 CHEST SINGLE AP COMPARISONS: Single view chest dated April 30, 2017 ADDITIONAL PERTINENT HISTORY: Lightheadedness and shortness of breath. FINDINGS: Cardiomediastinal silhouette: Negative. Pulmonary vasculature: Negative. Lung charles: Negative. Pleural spaces: Negative. Osseous structures: Negative. Surrounding soft tissues: Negative. IMPRESSION: No evidence of acute cardiopulmonary disease. Report Dictated By: Jake Logan MD at 07/08/2018 5:55 PM Report E-Signed By: Jake Logan MD at 07/08/2018 5:56 PM WSN:[email or web address] ED Course/Re-evaluation Clinical Indication for ER IV: Hydration, IV Access ED Course The patient was admitted to room. A history and physical were obtained. Diff erential diagnoses were considered. An IV was started. A 1 L normal saline bolus was given. A CBC, CMP were obtained.CBC unremarkable chemistry showing AST 40, ALT 78, as he is taking antivirals and other medications at this time this is not a surprising finding. UA unremarkable. EKG showing sinus rhythm. Patient states feeling much better after the fluids, as the patient does have shingles on the right forehead, unsure if this discomfort caused the episode today, I did recommend staying home from work tomorrow, following up with his primary care provider or one of the partners tomorrow. He was agreeable with this plan of care, discharged home. Decision to Disposition Date: July 08, 2018 Decision to Disposition Time: 18:56 Depart Departure Latest Vital Signs Vital Signs Date Time Temp Pulse Resp B/P (MAP) Pulse Ox O2 Delivery O2 Flow Rate FiO2 07/08/18 17:21 98.7 91 20 142/89 91 Room Air Impression: Primary Impression: Near syncope Condition: Improved Disposition: HOME OR SELF-CARE Referrals: SELENA LANDIS APRN ORTHOTIC AND PROSTHETIC TECHNICIAN-C (PCP) 5 Days JOSELITO NGUYEN DNP, ORTHOTIC AND PROSTHETIC TECHNICIAN-BC 2 Days Patient Instructions: Near Syncope (ED) Additional Instructions: Your laboratory studies were unremarkable other than elevated liver enzymes which is to be expected with some of the medications are currently taking. Chest x-ray did not show anything concerning. EKG unremarkable. This could be secondary to the pain your experiencing I would however recommend staying home tomorrow and following up with your primary care provider or one of the partners for reevaluation. Please drink plenty of water. Get plenty of rest. Return to the emergency department for any other concerns or worsening symptoms. OMA CRUZ ORTHOTIC AND PROSTHETIC TECHNICIAN-BC July 08, 2018 17:25
[2018-07-08 17:39] LABS: PLATELET COUNT, AUTOMATED 297 K/uL (150-450)
--- NOTE | 2018-07-08 17:55 | EKG ---
FACILITY: [facility] PATIENT NAME: DAYANA COLEMAN : [id number] MR: [id number] V: [id number] EXAM DATE: ORDERING PHYSICIAN: OMA CRUZ TECHNOLOGIST: MEGHAN Wilson Reason : DIZZY Blood Pressure : / mmHG Vent. Rate : 085 BPM Atrial Rate : 085 BPM P-R Int : 148 ms QRS Dur : 096 ms QT Int : 396 ms P-R-T Axes : 051 020 042 degrees QTc Int : 471 ms Normal sinus rhythm Normal ECG When compared with ECG of 30-APR-2017 13:57, Vent. rate has increased BY 28 BPM QT has lengthened Confirmed by TEMITOPE HAYES ([id number]) on 07/08/2018 6:42:49 PM Referred By: EZEKIEL Confirmed By:TEMITOPE HAYES
--- NOTE | 2018-07-08 18:00 | RADIOLOGY IMAGING REPORT ---
[place] [facility] [place] NAME: Jimmy Cutler : 1970 MR: [id number] V: [id number] EXAM DATE: ORDERING PHYSICIAN: OMA CRUZ TECHNOLOG[place]: [place] [facility] [place] Jimmy Cut[place] : 1970 Visit/Account:[id number] Date of Sevice: 07/08/2018 CHEST SINGLE AP COMPARISONS: Single view chest dated April 30, 2017 ADDITIONAL PERTINENT HISTORY: Lightheadedness and shortness of breath. FINDINGS: Cardiomediastinal silhouette: Negative. Pulmonary vasculature: Negative. Lung charles: Negative. Pleural spaces: Negative. Osseous structures: Negative. Surrounding soft tissues: Negative. IMPRESSION: No evidence of acute cardiopulmonary disease. Report Dictated By: Jake Logan MD at 07/08/2018 5:55 PM Report E-Signed By: Jake Logan MD at 07/08/2018 5:56 PM WSN:[id number]
[2018-07-08 18:48] VITALS: BP 112/74
[2018-07-09] MEDS ORDERED: LIDO700A19 TOP (09:25)
[2018-07-09] MEDS ORDERED: GABA-549 PO (09:25)
[2018-07-10] MEDS ORDERED: ESCI10TA8 PO (10:06)
[2018-07-11] MEDS ORDERED: PRED20TA6 PO (11:41)
== END 2018-07-08 19:08 | disposition home or self-care (01) ==
LOC: ER 17:52
DX: R55 Syncope and collapse (principal)
CPT/HCPCS: 71045; 81001; 84484; 85025; 93005; 96361; 96374; 99284; J2405; J7030; 82040; 82247; 82310; 82374; 82435; 82565; 82947; 84075; 84132; 84155; 84295; 84450; 84460; 84520

== ENCOUNTER → 2018-07-31 | Outpatient (REF) ==
[~2018-07-31] MED LIST changes: +GABA-549 PO; +LIDO700A19 TOP
[2018-07-31 16:53] LABS: LDL CHOLESTEROL 134 mg/dl
== END ==
DX: Z02.9 Encounter for administrative examinations, unspecified (principal)

== ENCOUNTER 2018-08-09 15:57 | Emergency (ER) | payer OTHER ==
--- NOTE | 2018-08-09 16:09 | ER Report ---
History and Physical Time Seen By MD: 16:07 Hx. of Stated Complaint: PT REPORTS INCREASE IN LIGHTHEADEDNESS TODAY. 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 Cardiovascular: No chest pain, no palpitations. Gastrointestinal: No vomiting, no abdominal pain. Musculoskeletal: No back pain. Remainder of the 14 system rev: Yes Allergies: Coded Allergies: cephalexin (Verified Allergy, Severe, Hives, 08/09/18) Uncoded Allergies: RAGWEED MOLD (Allergy, Mild, STUFFY NOSE, 12/23/06) Home Meds Active Scripts Buspirone Hcl (BUSPIRONE HCL) 5 Mg Tab, 1 TAB PO TID, #90 TAB 4 Refills Prov:SELENA LANDIS APRNP-C 07/22/18 Escitalopram Oxalate (ESCITALOPRAM OXALATE) 10 Mg Tablet, 0.5 TAB PO QDAY, #45 TAB 0 Refills Prov:SELENA LANDIS APRNP-C 07/10/18 Lisinopril/Hydrochlorothiazide (LISINOPRIL-HCTZ 20-25 MG TAB) 1 Each Tablet, 1 TAB PO DAILY, #90 TAB 2 Refills Prov:SELENA LANDIS APRNP-C 08/31/17 Oxygen (OXYGEN) Inha, 2 L INH QHS, #2 L Prov:SELENA LANDIS APRNP-C 08/29/17 Discontinued Scripts Prednisone (PREDNISONE) 20 Mg Tablet, 1 TAB PO BID for 5 Days, #10 TAB 0 Refills Prov:JOSELITO NGUYEN DNP, [employer] 07/11/18 Gabapentin (GABAPENTIN) 300 Mg Capsule, 1 CAP PO QHS, #15 CAPSULE 0 Refills Prov:SELENA LANDIS APRNP-C 07/09/18 Lidocaine (Lidocaine) 5 % Adh..patch, 1 PATCH TOP DAILY, #15 PATCH 0 Refills Leave patch in place for 12 hours and then remove and leave off for 12 hours before replacing with a new patch. Prov:SELENA LANDIS APRNP-Bernadette 07/09/18 Reviewed Nurses Notes: Yes Old Medical Records Reviewed: Yes Hx Smoking: No Smoking Status: Never Smoker Exposure to Second Hand Smoke?: No Hx Substance Use Disorder: No Hx Alcohol Use: No Constitutional Vital Sign - Last 24 Hours 08/09/18 08/09/18 16:02 16:13 Temp 98.0 Pulse 89 Resp 18 B/P (MAP) 121/90 Pulse Ox 85 O2 Delivery Room Air O2 Flow Rate 2.0 Physical Exam General Appearance: The patient is alert, has no immediate need for airway protection and no current signs of toxicity. [ ] Eyes: Pupils equal and round no injection. Respiratory: Chest is non tender, lungs are clear to auscultation. Cardiac: regular rate and rhythm [ ] Gastrointestinal: Abdomen is soft and non tender, no masses, bowel sounds normal. Musculoskeletal: Neck: Neck is supple and non tender. Extremities have full range of motion and are non tender. Skin: No rashes or lesions. [ ] DIFFERENTIAL DIAGNOSIS: After history and physical exam differential diagnosis was considered for cardiac abnormality infectious etiology bronchitis pneumonia overwork fatigue stress anxiety Medical Decision Making Data Points Result Diagram: 08/09/18 1611 08/09/18 1611 Laboratory Hematology Test 08/09/18 16:11 Red Blood Count 5.14 M/uL (4.00-5.60) Mean Corpuscular Volume 93.2 fL (80.0-96.0) Mean Corpuscular Hemoglobin 32.0 pg (26.0-33.0) Mean Corpuscular Hemoglobin Concent 34.4 g/dL (32.0-36.0) Red Cell Distribution Width 13.5 % (11.5-14.5) Mean Platelet Volume 7.3 fL (7.2-11.1) Neutrophils (%) (Auto) 62.3 % (39.4-72.5) Lymphocytes (%) (Auto) 24.0 % (17.6-49.6) Monocytes (%) (Auto) 9.6 % (4.1-12.4) Eosinophils (%) (Auto) 3.3 % (0.4-6.7) Basophils (%) (Auto) 0.8 % (0.3-1.4) Nucleated RBC Relative Count (auto) 0.0 /100WBC Neutrophils # (Auto) 5.9 K/uL (2.0-7.4) Lymphocytes # (Auto) 2.3 K/uL (1.3-3.6) Monocytes # (Auto) 0.9 K/uL (0.3-1.0) Eosinophils # (Auto) 0.3 K/uL (0.0-0.5) Basophils # (Auto) 0.1 K/uL (0.0-0.1) Nucleated RBC Absolute Count (auto) 0.00 K/uL D-Dimer Quantitative (PE/DVT) < 0.27 ug/ml (0-0.50) Sodium Level 139 mmol/L (137-145) Potassium Level 3.9 mmol/L (3.5-5.0) Chloride Level 103 mmol/L (98-107) Carbon Dioxide Level 28 mmol/L (22-30) Blood Urea Nitrogen 13 mg/dl (9-21) Creatinine 0.90 mg/dl (0.66-1.25) Glomerular Filtration Rate Calc > 60.0 Random Glucose 87 mg/dl (75-110) Calcium Level 9.4 mg/dl (8.4-10.2) Total Bilirubin 0.5 mg/dl (0.2-1.3) Aspartate Amino Transf (AST/SGOT) 29 U/L (0-35) Alanine Aminotransferase (ALT/SGPT) 45 U/L (0-56) Alkaline Phosphatase 55 U/L (0-126) Troponin I < 0.012 ng/ml B-Type Natriuretic Peptide < 5 pg/ml (0-100) Total Protein 7.4 g/dl (6.3-8.2) Albumin 4.3 g/dl (3.5-5.0) Chemistry Test 08/09/18 16:11 White Blood Count 9.4 k/uL (4.5-11.0) Red Blood Count 5.14 M/uL (4.00-5.60) Hemoglobin 16.4 g/dL (14.0-18.0) Hematocrit 47.9 % (42.0-52.0) Mean Corpuscular Volume 93.2 fL (80.0-96.0) Mean Corpuscular Hemoglobin 32.0 pg (26.0-33.0) Mean Corpuscular Hemoglobin Concent 34.4 g/dL (32.0-36.0) Red Cell Distribution Width 13.5 % (11.5-14.5) Platelet Count 316 K/uL (150-450) Mean Platelet Volume 7.3 fL (7.2-11.1) Neutrophils (%) (Auto) 62.3 % (39.4-72.5) Lymphocytes (%) (Auto) 24.0 % (17.6-49.6) Monocytes (%) (Auto) 9.6 % (4.1-12.4) Eosinophils (%) (Auto) 3.3 % (0.4-6.7) Basophils (%) (Auto) 0.8 % (0.3-1.4) Nucleated RBC Relative Count (auto) 0.0 /100WBC Neutrophils # (Auto) 5.9 K/uL (2.0-7.4) Lymphocytes # (Auto) 2.3 K/uL (1.3-3.6) Monocytes # (Auto) 0.9 K/uL (0.3-1.0) Eosinophils # (Auto) 0.3 K/uL (0.0-0.5) Basophils # (Auto) 0.1 K/uL (0.0-0.1) Nucleated RBC Absolute Count (auto) 0.00 K/uL D-Dimer Quantitative (PE/DVT) < 0.27 ug/ml (0-0.50) Glomerular Filtration Rate Calc > 60.0 Calcium Level 9.4 mg/dl (8.4-10.2) Total Bilirubin 0.5 mg/dl (0.2-1.3) Aspartate Amino Transf (AST/SGOT) 29 U/L (0-35) Alanine Aminotransferase (ALT/SGPT) 45 U/L (0-56) Alkaline Phosphatase 55 U/L (0-126) Troponin I < 0.012 ng/ml B-Type Natriuretic Peptide < 5 pg/ml (0-100) Total Protein 7.4 g/dl (6.3-8.2) Albumin 4.3 g/dl (3.5-5.0) Coagulation Test 08/09/18 16:11 D-Dimer Quantitative (PE/DVT) < 0.27 ug/ml ED Course/Re-evaluation ED Course ED course 48-year-old male who comes in with mild shortness of breath and fatigue recently and cardiac markers d-dimer all negative EKG chest x-ray L normal patient most likely this is generalized fatigue will send him home today from work and follow up with primary care Decision to Disposition Date: Aug 09, 2018 Decision to Disposition Time: 17:02 Depart Departure Latest Vital Signs Vital Signs Date Time Temp Pulse Resp B/P (MAP) Pulse Ox O2 Delivery O2 Flow Rate FiO2 08/09/18 16:13 2.0 08/09/18 16:02 98.0 89 18 121/90 85 Room Air Impression: Primary Impression: Fatigue Condition: Condition Unchanged Disposition: HOME OR SELF-CARE Referrals: SELENA LANDIS APRN [employer] (PCP) 5 Days Patient Instructions: Fatigue (DC) CARLOS SMITH MD Aug 09, 2018 16:09
[2018-08-09] MEDS ORDERED: ASPIRIN 81 MG CHEW PO ONE (16:10)
[2018-08-09 16:27] LABS: PLATELET COUNT, AUTOMATED 316 K/uL (150-450)
--- NOTE | 2018-08-09 16:48 | RADIOLOGY IMAGING REPORT ---
FACILITY: [facility] - [place] PATIENT NAME: Jimmy Cutler : 1970 MR: [id number] V: [id number] EXAM DATE: ORDERING PHYSICIAN: CARLOS SMITH TECHNOLOGIST: Location: [facility] - [place] Patient: Jimmy Cutler : 1970 Visit/Account:[id number] Date of Sevice: 08/09/2018 INDICATION: Chest pain DATE: 08/09/2018 4:43 PM. TECHNIQUE: CHEST PA LAT COMPARISON: Chest radiograph July 08, 2018. FINDINGS: Heart size is normal. No effusion, consolidation, or pneumothorax. IMPRESSION: No acute findings. Report Dictated By: Cat Elias MD at 08/09/2018 4:43 PM Report E-Signed By: Cat Elias MD at 08/09/2018 4:43 PM [id number]
[2018-08-09 17:08] VITALS: BP 107/98
--- NOTE | 2018-08-09 18:35 | EKG ---
FACILITY: [facility] - [place] PATIENT NAME: DAYANA COLEMAN : [id number] MR: [id number] V: [id number] EXAM DATE: ORDERING PHYSICIAN: CARLOS SMITH TECHNOLOGIST: Test Reason : Blood Pressure : / mmHG Vent. Rate : 086 BPM Atrial Rate : 086 BPM P-R Int : 146 ms QRS Dur : 090 ms QT Int : 378 ms P-R-T Axes : 024 052 038 degrees QTc Int : 452 ms Normal sinus rhythm Normal ECG When compared with ECG of 08-JUL-2018 17:30, No significant change was found Confirmed by SHLOMO ESCOBAR ([id number]) on 08/10/2018 6:42:39 AM Referred By: Confirmed By:SHLOMO ESCOBAR
== END 2018-08-09 17:16 | disposition home or self-care (01) ==
LOC: ER 16:13
DX: R53.83 Other fatigue (principal)
CPT/HCPCS: 71046; 82040; 82247; 82310; 82374; 82435; 82565; 82947; 83880; 84075; 84132; 84155; 84295; 84450; 84460; 84484; 84520; 85025; 85379; 93005; 99284

== ENCOUNTER → 2018-09-24 | Outpatient (CLI) | payer OTHER | LOC: AUD 08:00 | PROVIDERS: ATTEND Nurse Practitioner Family | DX: Z02.9 Encounter for administrative examinations, unspecified (principal) ==